=== PATIENT | male | born 1965 | race Caucasian/White ===

== ENCOUNTER 2017-11-13 15:27 | Emergency (ER) | payer SELFPAY ==
[~2017-11-13] VITALS: Ht 175.3 cm; Wt 76.2 kg
[2017-11-13] MEDS ORDERED: CITA10SO PO (16:07)
[2017-11-13] MEDS ORDERED: BUSP30TA2 PO (16:07)
[2017-11-13] MEDS ORDERED: DIVA125T32 PO (16:07)
[2017-11-13] MEDS ORDERED: TRAZ-190 PO (16:07)
--- NOTE | 2017-11-13 16:08 | ED Psychosocial ---
General Chief Complaint: Psych/Social Disorder Stated Complaint: PANIC ATTACKS/SUICIDAL Source: patient, other (patient was referred to the emergency department from [facility].) Exam Limitations: no limitations History of Present Illness Date Seen by Provider: Nov 13, 2017 Time Seen by Provider: 16:05 Initial Comments This 52-year-old white male presents with a suicidal ideation from [facility]. The Patient has not actively done anything to harm himself. He states he has lifelong depression. The patient was referred to the emergency department from [facility] where he was being seen on an outpatient basis in mental health. Upon further history taking patient relates that he no longer has a suicidal ideation. He was given new medications to start from [facility] which she will take. He wants to follow-up with mental health at [facility] on Thursday for further evaluation and care. Allergies and Home Medications Allergies Uncoded Allergies: IV DYE (Allergy, Unknown, 11/13/17) Patient Home Medication List Home Medication List Reviewed: Yes Constitutional: No chills, No fever EENTM: No vision loss Respiratory: No hemoptysis, No short of breath Gastrointestinal: No abdominal pain, No vomiting Genitourinary: no symptoms reported Musculoskeletal: no symptoms reported Skin: No rash Psychiatric/Neurological: Anxiety, Depressed, Other (suicidal ideations) Past Ajeoaue-Kkvqvr-Dhrwif Hx Patient Social History Recent Foreign Travel: No Contact w/Someone Who Travel: No Family Medical History Reviewed Nursing Family Hx Physical Exam Vital Signs Vital Signs - First Documented 11/13/17 15:50 Temp 97.1 Pulse 66 Resp 18 B/P (MAP) 126/89 (101) Pulse Ox 99 O2 Delivery Room Air Capillary Refill : General Appearance: WD/WN, mild distress HEENT: normal ENT inspection Neck: supple Respiratory: lungs clear, normal breath sounds Cardiovascular: regular rate, rhythm Gastrointestinal: normal bowel sounds, non tender Extremities: normal range of motion, non-tender Neurologic/Psychiatric: no motor/sensory deficits, alert, normal mood/affect, oriented x 3 Appearance/Memory: other (patient appears clearly depressed. He is having no flight of ideas. He is having no hallucinations.) Behavior/Eye Contact: cooperative, normal speech Thoughts/Hallucinations: no apparent hallucination; No auditory hallucinations ; flight of ideas; No tactile hallucinations, No visual hallucinations Skin: normal color Progress/Results/Core Measures Lab Results Laboratory Tests Test 4/13/18 15:54 Range/Units White Blood Count 10.2 4.3-11.0 10^3/uL Red Blood Count 5.93 H 4.35-5.85 10^6/uL Hemoglobin 17.6 13.3-17.7 G/DL Hematocrit 50 40-54 % Mean Corpuscular Volume 85 80-99 FL Mean Corpuscular Hemoglobin 30 25-34 PG Mean Corpuscular Hemoglobin Concent 35 32-36 G/DL Red Cell Distribution Width 14.1 10.0-14.5 % Platelet Count 316 130-400 10^3/uL Mean Platelet Volume 10.0 7.4-10.4 FL Neutrophils (%) (Auto) 66 42-75 % Lymphocytes (%) (Auto) 25 12-44 % Monocytes (%) (Auto) 8 0-12 % Eosinophils (%) (Auto) 1 0-10 % Basophils (%) (Auto) 0 0-10 % Neutrophils # (Auto) 6.7 1.8-7.8 X 10^3 Lymphocytes # (Auto) 2.6 1.0-4.0 X 10^3 Monocytes # (Auto) 0.8 0.0-1.0 X 10^3 Eosinophils # (Auto) 0.1 0.0-0.3 10^3/uL Basophils # (Auto) 0.0 0.0-0.1 10^3/uL Sodium Level 141 135-145 MMOL/L Potassium Level 4.5 3.6-5.0 MMOL/L Chloride Level 105 98-107 MMOL/L Carbon Dioxide Level 26 21-32 MMOL/L Anion Gap 10 5-14 MMOL/L Blood Urea Nitrogen 18 7-18 MG/DL Creatinine 1.03 0.60-1.30 MG/DL Estimat Glomerular Filtration Rate > 60 BUN/Creatinine Ratio 17 Glucose Level 91 70-105 MG/DL Calcium Level 10.2 H 8.5-10.1 MG/DL Total Bilirubin 0.6 0.1-1.0 MG/DL Aspartate Amino Transf (AST/SGOT) 15 5-34 U/L Alanine Aminotransferase (ALT/SGPT) 14 0-55 U/L Alkaline Phosphatase 82 40-136 U/L Total Protein 7.5 6.4-8.2 GM/DL Albumin 4.6 H 3.2-4.5 GM/DL Salicylates Level < 5.0 L 5.0-20.0 MG/DL Urine Opiates Screen NEGATIVE NEGATIVE Urine Oxycodone Screen NEGATIVE NEGATIVE Urine Methadone Screen NEGATIVE NEGATIVE Urine Propoxyphene Screen NEGATIVE NEGATIVE Acetaminophen Level < 10 L 10-30 UG/ML Urine Barbiturates Screen NEGATIVE NEGATIVE Ur Tricyclic Antidepressants Screen NEGATIVE NEGATIVE Urine Phencyclidine Screen NEGATIVE NEGATIVE Urine Amphetamines Screen POSITIVE H NEGATIVE Urine Methamphetamines Screen NEGATIVE NEGATIVE Urine Benzodiazepines Screen NEGATIVE NEGATIVE Urine Cocaine Screen NEGATIVE NEGATIVE Urine Cannabinoids Screen POSITIVE H NEGATIVE Serum Alcohol < 10 <10 MG/DL My Orders Orders - TRAVON LOVE MD Cbc With Automated Diff (11/13/17 16:21) Comprehensive Metabolic Panel (11/13/17 16:21) Alcohol (11/13/17 16:21) Salicylate (11/13/17 16:21) Acetaminophen (11/13/17 16:21) Drug Screen Stat (Urine) (11/13/17 16:46) Ekg Tracing (11/13/17 16:57) Vital Signs/I&O 11/13/17 15:50 Temp 97.1 Pulse 66 Resp 18 B/P (MAP) 126/89 (101) Pulse Ox 99 O2 Delivery Room Air Progress Note : Time: 17:16 Progress Note The patient demonstrates capacity. He states that he is no longer suicidal. He states that he will follow-up with [facility] for further psychiatric treatment on Thursday. He promises to return if any problems or questions Departure Impression Primary Impression: Depression Qualified Codes: F33.2 - Major depressive disorder, recurrent severe without psychotic features Disposition: 01 HOME, SELF-CARE Condition: Unchanged Departure-Patient Inst. Decision time for Depature: 17:18 Referrals: [facility] (PCP/Family) Primary Care Physician Patient Instructions: Depression, Adult (DC) Add. Discharge Instructions: Follow-up with [facility] for further evaluation treatment of her depression on Thursday. Take the medications that were given to you from [facility] over the weekend. Return if any problems or questions to the emergency department. All discharge instructions reviewed with patient and/or family. Voiced understanding. TRAVON LOVE MD Nov 13, 2017 16:08
[2017-11-13 16:28] LABS: BASOPHILS % (AUTO) 0 % (0-10); EOSINOPHILS # (AUTO) 0.1 10^3/uL (0.0-0.3); EOSINOPHILS % (AUTO) 1 % (0-10); HEMATOCRIT 50 % (40-54); HEMOGLOBIN 17.6 G/DL (13.3-17.7); LYMPHOCYTES # (AUTO) 2.6 X 10^3 (1.0-4.0); LYMPHOCYTES % (AUTO) 25 % (12-44); MEAN CORPUSCULAR HEMOGLOBIN 30 PG (25-34); MEAN CORPUSCULAR HGB CONC 35 G/DL (32-36); MEAN CORPUSCULAR VOLUME 85 FL (80-99); MONOCYTES # (AUTO) 0.8 X 10^3 (0.0-1.0); MONOCYTES % (AUTO) 8 % (0-12); NEUTROPHILS # (AUTO) 6.7 X 10^3 (1.8-7.8); NEUTROPHILS % (AUTO) 66 % (42-75); PLATELET COUNT 316 10^3/uL (130-400); RED BLOOD COUNT 5.93 10^6/uL (4.35-5.85); RED CELL DISTRIBUTION WIDTH 14.1 % (10.0-14.5); WHITE BLOOD COUNT 10.2 10^3/uL (4.3-11.0)
[2017-11-13 16:42] LABS: ACETAMINOPHEN < 10 UG/ML (10-30); ALANINE AMINOTRANSFERASE 14 U/L (0-55); ALBUMIN 4.6 GM/DL (3.2-4.5); ALKALINE PHOSPHATASE 82 U/L (40-136); BILIRUBIN,TOTAL 0.6 MG/DL (0.1-1.0); BUN/CREATININE RATIO 17; CALCIUM 10.2 MG/DL (8.5-10.1); CARBON DIOXIDE 26 MMOL/L (21-32); CHLORIDE 105 MMOL/L (98-107); CREATININE SERUM 1.03 MG/DL (0.60-1.30); GFR ESTIMATED > 60; GLUCOSE 91 MG/DL (70-105); POTASSIUM 4.5 MMOL/L (3.6-5.0); SALICYLATE < 5.0 MG/DL (5.0-20.0); SODIUM 141 MMOL/L (135-145); TOTAL PROTEIN 7.5 GM/DL (6.4-8.2)
[2017-11-13 17:04] LABS: AMPHETAMINE SCREEN, URINE POSITIVE (NEGATIVE); BARBITURATE SCREEN URINE NEGATIVE (NEGATIVE); BENZODIAZEPINES SCREEN URINE NEGATIVE (NEGATIVE); CANNABINOID SCREEN, URINE POSITIVE (NEGATIVE); COCAINE SCREEN URINE NEGATIVE (NEGATIVE); METHADONE STAT NEGATIVE (NEGATIVE); METHAMPHETAMINE SCREEN URINE S NEGATIVE (NEGATIVE); OPIATE SCREEN URINE NEGATIVE (NEGATIVE); OXYCODONE STAT NEGATIVE (NEGATIVE); PROPOXYPHENE STAT NEGATIVE (NEGATIVE); TRICYCLIC ANTIDEPRESSANTS SCRE NEGATIVE (NEGATIVE)
[2017-11-13 17:34] VITALS: BP 122/87
== END 2017-11-13 17:33 | disposition home or self-care (01) ==
LOC: EDUNIT# 15:27 → ER 15:28
DX: F32.9 Major depressive disorder, single episode, unspecified (principal); F41.9 Anxiety disorder, unspecified; Z91.041 Radiographic dye allergy status
CPT/HCPCS: 36415; 80053; 80306; 80320; 80329; 85025; 93005

== ENCOUNTER 2018-06-10 14:10 | Emergency (ER) | payer OTHER ==
[~2018-06-10] VITALS: Ht 175.3 cm; Wt 72.6 kg
[~2018-06-10 14:10] MED LIST: BUSP30TA2 PO; CITA10SO PO; DIVA125T32 PO; TRAZ-190 PO
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
[2018-06-10] MEDS ORDERED: NAPR-1071 PO (15:00)
[2018-06-10] MEDS ORDERED: METH-313 PO (15:00)
[2018-06-10 15:19] VITALS: BP 131/91
== END 2018-06-10 15:19 | disposition home or self-care (01) ==
LOC: EDUNIT# 14:10 → ER 14:12
DX: S16.1XXA Strain of muscle, fascia and tendon at neck level, initial encounter (principal); R20.2 Paresthesia of skin; F32.9 Major depressive disorder, single episode, unspecified; R40.2142 Coma scale, eyes open, spontaneous, at arrival to emergency department; R40.2252 Coma scale, best verbal response, oriented, at arrival to emergency department; R40.2362 Coma scale, best motor response, obeys commands, at arrival to emergency department; F12.10 Cannabis abuse, uncomplicated; F15.10 Other stimulant abuse, uncomplicated; Z91.041 Radiographic dye allergy status; Z77.22 Contact with and (suspected) exposure to environmental tobacco smoke (acute) (chronic); Z91.5 Personal history of self-harm; V49.40XA Driver injured in collision with unspecified motor vehicles in traffic accident, initial encounter
CPT/HCPCS: 72125

== ENCOUNTER 2019-02-07 04:53 | Emergency (ER) | payer SELFPAY ==
[~2019-02-07] VITALS: Ht 175.3 cm; Wt 68.0 kg
[~2019-02-07 04:53] MED LIST changes: +METH-313 PO; +NAPR-1071 PO
[2019-02-07] MEDS ORDERED: KETOROLAC 30 MG/ML VIAL IM ONE (06:45)
--- NOTE | 2019-02-07 06:52 | NUR ---
REPORT GIVEN TO LAVERNE RODRIGUEZ
--- NOTE | 2019-02-07 06:54 | Diagnostic Imaging Report ---
INDICATION: Injury with pain. FINDINGS: Three-view left ankle showed no fracture, dislocation or acute articular incongruity. The plafond and talar dome intact. No disruption of the mortise. Medial, lateral and posterior malleolar intact. IMPRESSION: No acute appearing abnormality. Dictated by: Dictated on workstation # [id number]
--- NOTE | 2019-02-07 06:55 | Diagnostic Imaging Report ---
Indication: Injury with pain. Three-view left foot shows no fracture, dislocation or acute articular incongruity. No retained foreign body. No focal swelling. Impression: Unremarkable three-view left foot. Dictated by: Dictated on workstation # [id number]
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
[2019-02-07 07:27] VITALS: BP 126/78
== END 2019-02-07 07:26 | disposition home or self-care (01) ==
LOC: EDUNIT# 04:53 → ER 04:56
DX: S90.32XA Contusion of left foot, initial encounter (principal); F32.9 Major depressive disorder, single episode, unspecified; Z77.22 Contact with and (suspected) exposure to environmental tobacco smoke (acute) (chronic); Z91.041 Radiographic dye allergy status; W22.8XXA Striking against or struck by other objects, initial encounter
CPT/HCPCS: 73610; 73630; 96372

== ENCOUNTER 2020-12-31 13:01 | Emergency (ER) | payer SELFPAY ==
[~2020-12-31] VITALS: Ht 175 cm; Wt 72.7 kg
[~2020-12-31 13:01] MED LIST changes: -TRAZ-190 PO; +TRAZ-227 PO
[2020-12-31 13:39] LABS: BASOPHILS # (AUTO) 0.1 10^3/uL (0.0-0.1); BASOPHILS % (AUTO) 1 % (0-10); EOSINOPHILS # (AUTO) 0.1 10^3/uL (0.0-0.3); EOSINOPHILS % (AUTO) 1 % (0-10); HEMATOCRIT 47 % (40-54); HEMOGLOBIN 16.4 g/dL (13.3-17.7); LYMPHOCYTES # (AUTO) 1.6 10^3/uL (1.0-4.0); LYMPHOCYTES % (AUTO) 18 % (12-44); MEAN CORPUSCULAR HEMOGLOBIN 30 pg (25-34); MEAN CORPUSCULAR HGB CONC 35 g/dL (32-36); MEAN CORPUSCULAR VOLUME 85 fL (80-99); MEAN PLATELET VOLUME 9.4 fL (9.0-12.2); MONOCYTES # (AUTO) 0.8 10^3/uL (0.0-1.0); MONOCYTES % (AUTO) 10 % (0-12); NEUTROPHILS % (AUTO) 71 % (42-75); PLATELET COUNT 303 10^3/uL (130-400); WHITE BLOOD COUNT 8.5 10^3/uL (4.3-11.0)
--- NOTE | 2020-12-31 13:40 | ED GU-Male ---
General Chief Complaint: Abdominal/GI Problems Stated Complaint: RLQ PAIN Nursing Triage Note: AMB TO ROOM C/O R SIDE PAIN ONSET YESTERDAY. YESTERDAY PAIN WAS IN HIS BACK. ONSET 3 DAYS AGO. ALSO ADMIT TO SMOKING METH YESTERDAY. Source: patient Exam Limitations: no limitations History of Present Illness Date Seen by Provider: December 31, 2020 Time Seen by Provider: 13:38 Initial Comments To ER with right flank pain for about 5 days getting worse over the past few days. Smoked methamphetamine yesterday. Intermittent nausea. He did have some dysuria but that feels better today. Timing/Duration: just prior to arrival Severity/Quality: moderate Location: right flank Radiation: none Activities at Onset: none Prior Genitourinary Problems: none Associated Symptoms: dysuria, nausea/vomiting Allergies and Home Medications Allergies Uncoded Allergies: IV DYE (Allergy, Unknown, 11/13/17) Home Medications Methocarbamol 750 Mg Tablet, 750 MG PO Q6H PRN for PAIN-MODERATE TO SEVERE Prescribed by: BEN FLORES on 06/10/18 1500 Naproxen 500 Mg Tablet, 500 MG PO BID PRN for PAIN-MODERATE TO SEVERE Prescribed by: BEN FLORES on 06/10/18 1500 Patient Home Medication List Home Medication List Reviewed: Yes Review of Systems Review of Systems Constitutional: see HPI EENTM: see HPI Respiratory: no symptoms reported Cardiovascular: no symptoms reported Genitourinary: see HPI, dysuria, flank pain Musculoskeletal: no symptoms reported Skin: no symptoms reported Psychiatric/Neurological: No Symptoms Reported Endocrine: No Symptoms Reported Hematologic/Lymphatic: No Symptoms Reported Past Pxvgbep-[id number]-Pokgrq Hx Patient Social History Alcohol Use: Denies Use Drug of Choice: CANNIBUS, METH Smoking Status: Current Everyday Smoker Type Used: Cigarettes 2nd Hand Smoke Exposure: Yes Recent Infectious Disease Expo: No Recent Hopitalizations: No Immunizations Up To Date Tetanus Booster (TDap): Unknown Seasonal Allergies Seasonal Allergies: No Past Medical History Surgeries: No Respiratory: No Cardiac: No Neurological: No Genitourinary: No Gastrointestinal: No Musculoskeletal: No Endocrine: No HEENT: No Cancer: No Psychosocial: Yes Suicide Attempts, Depression Integumentary: No Blood Disorders: No Physical Exam Vital Signs Vital Signs - First Documented 12/31/20 13:10 Temp 35.8 Pulse 107 Resp 18 B/P (MAP) 157/102 (120) Pulse Ox 99 O2 Delivery Room Air Capillary Refill : Less Than 3 Seconds Height, Weight, BMI Height: 5'9.00" Weight: 150lbs. oz. [id number]; 23.00 BMI Method:Stated General Appearance: WD/WN, no apparent distress HEENT: PERRL/EOMI, normal ENT inspection Neck: non-tender, full range of motion Respiratory: no respiratory distress, no accessory muscle use Gastrointestinal: normal bowel sounds, non tender, soft Neurologic/Psychiatric: alert, normal mood/affect, oriented x 3 Skin: normal color, warm/dry Progress/Results/Core Measures Suspected Sepsis Recent Fever Within 48 Hours: No Infection Criteria Present: None New/Unexplained Altered Menta: No Sepsis Screen: No Definite Risk SIRS Temperature: Pulse: 107 Respiratory Rate: 18 Laboratory Tests 12/31/20 13:32: White Blood Count 8.5 Blood Pressure 157 /102 Mean: 120 Laboratory Tests 12/31/20 13:32: Creatinine 0.93, Platelet Count 303, Total Bilirubin 0.4 Results/Orders Lab Results Laboratory Tests Test 12/31/20 13:32 12/31/20 14:08 Range/Units White Blood Count 8.5 4.3-11.0 10^3/uL Red Blood Count 5.51 4.30-5.52 10^6/uL Hemoglobin 16.4 13.3-17.7 g/dL Hematocrit 47 40-54 % Mean Corpuscular Volume 85 80-99 fL Mean Corpuscular Hemoglobin 30 25-34 pg Mean Corpuscular Hemoglobin Concent 35 32-36 g/dL Red Cell Distribution Width 13.0 10.0-14.5 % Platelet Count 303 130-400 10^3/uL Mean Platelet Volume 9.4 9.0-12.2 fL Immature Granulocyte % (Auto) 0 % Neutrophils (%) (Auto) 71 42-75 % Lymphocytes (%) (Auto) 18 12-44 % Monocytes (%) (Auto) 10 0-12 % Eosinophils (%) (Auto) 1 0-10 % Basophils (%) (Auto) 1 0-10 % Neutrophils # (Auto) 6.0 1.8-7.8 10^3/uL Lymphocytes # (Auto) 1.6 1.0-4.0 10^3/uL Monocytes # (Auto) 0.8 0.0-1.0 10^3/uL Eosinophils # (Auto) 0.1 0.0-0.3 10^3/uL Basophils # (Auto) 0.1 0.0-0.1 10^3/uL Immature Granulocyte # (Auto) 0.0 0.0-0.1 10^3/uL Sodium Level 139 135-145 MMOL/L Potassium Level 4.0 3.6-5.0 MMOL/L Chloride Level 102 98-107 MMOL/L Carbon Dioxide Level 25 21-32 MMOL/L Anion Gap 12 5-14 MMOL/L Blood Urea Nitrogen 12 7-18 MG/DL Creatinine 0.93 0.60-1.30 MG/DL Estimat Glomerular Filtration Rate > 60 BUN/Creatinine Ratio 13 Glucose Level 96 70-105 MG/DL Calcium Level 10.0 8.5-10.1 MG/DL Corrected Calcium 9.8 8.5-10.1 MG/DL Total Bilirubin 0.4 0.1-1.0 MG/DL Aspartate Amino Transf (AST/SGOT) 21 5-34 U/L Alanine Aminotransferase (ALT/SGPT) 22 0-55 U/L Alkaline Phosphatase 87 40-136 U/L Total Protein 7.1 6.4-8.2 GM/DL Albumin 4.3 3.2-4.5 GM/DL Urine Color YELLOW Urine Clarity CLEAR Urine pH 7.0 5-9 Urine Specific [place] 1.020 1.016-1.022 Urine Protein NEGATIVE NEGATIVE Urine Glucose (UA) NEGATIVE NEGATIVE Urine Ketones NEGATIVE NEGATIVE Urine Nitrite NEGATIVE NEGATIVE Urine Bilirubin NEGATIVE NEGATIVE Urine Urobilinogen 0.2 < = 1.0 MG/DL Urine Leukocyte Esterase NEGATIVE NEGATIVE Urine RBC (Auto) NEGATIVE NEGATIVE Urine RBC 0-2 /HPF Urine WBC NONE /HPF Urine Crystals NONE /LPF Urine Bacteria NEGATIVE /HPF Urine Casts NONE /LPF Urine Mucus NEGATIVE /LPF Urine Culture Indicated NO My Orders Orders - BEN FLORES APRN Cbc With Automated Diff (12/31/20 13:32) Comprehensive Metabolic Panel (12/31/20 13:32) Ua Culture If Indicated (12/31/20 13:32) Ed Iv/Invasive Line Start (12/31/20 13:32) Ct Abd/Pelvis Wo(Kidney Stone) (12/31/20 13:35) Ketorolac Injection (Toradol Injection) (12/31/20 13:45) Ns Iv 1000 Ml (Sodium Chloride 0.9%) (12/31/20 13:45) Medications Given in ED Current Medications Medications Dose Ordered Sig/Airam Route Start Time Stop Time Status Last Admin Dose Admin Ketorolac Tromethamine 15 mg ONCE ONCE IVP 12/31/20 13:45 12/31/20 13:46 DC 12/31/20 13:54 15 MG Vital Signs/I&O 12/31/20 13:10 Temp 35.8 Pulse 107 Resp 18 B/P (MAP) 157/102 (120) Pulse Ox 99 O2 Delivery Room Air Capillary Refill : Less Than 3 Seconds Blood Pressure Mean: 120 Departure Impression Primary Impression: Muscle strain Disposition: HOME, SELF-CARE Condition: Stable Departure-Patient Inst. Decision time for Depature: 14:34 [place]: [facility] [place] Primary Care Physician Patient Instructions: Muscle Strain ED Add. Discharge Instructions: 1. Return to ER for any concerns 2. Follow-up with your doctor next week 3. All discharge instructions reviewed with patient and/or family. Voiced unders tanding. BEN FLORES TIE FASTENER December 31, 2020 13:39
[2020-12-31] MEDS ORDERED: KETOROLAC 30 MG/ML VIAL IVP ONE (13:45)
[2020-12-31] MEDS ORDERED: NS IV 1000 ML 1,000 ML IV SCH (13:45)
[2020-12-31 13:47] LABS: ALBUMIN 4.3 GM/DL (3.2-4.5)
[2020-12-31 13:48] LABS: CHLORIDE 102 MMOL/L (98-107); SODIUM 139 MMOL/L (135-145)
[2020-12-31 13:50] LABS: GLUCOSE 96 MG/DL (70-105); TOTAL PROTEIN 7.1 GM/DL (6.4-8.2)
[2020-12-31 13:51] LABS: CARBON DIOXIDE 25 MMOL/L (21-32)
[2020-12-31 13:52] LABS: BILIRUBIN,TOTAL 0.4 MG/DL (0.1-1.0)
[2020-12-31 13:53] LABS: ALKALINE PHOSPHATASE 87 U/L (40-136)
[2020-12-31 13:54] LABS: CREATININE SERUM 0.93 MG/DL (0.60-1.30); GFR ESTIMATED > 60
[2020-12-31 13:55] LABS: BUN/CREATININE RATIO 13
[2020-12-31 13:56] LABS: ALANINE AMINOTRANSFERASE 22 U/L (0-55)
[2020-12-31 14:14] LABS: BILIRUBIN,URINE NEGATIVE (NEGATIVE); CLARITY,URINE CLEAR; COLOR,URINE YELLOW; GLUCOSE, URINE (UA) NEGATIVE (NEGATIVE); KETONES,URINE NEGATIVE (NEGATIVE); LEUKOCYTE ESTERASE ,URINE NEGATIVE (NEGATIVE); NITRITE,URINE NEGATIVE (NEGATIVE); PROTEIN,URINE NEGATIVE (NEGATIVE)
[2020-12-31 14:27] LABS: BACTERIA,URINE NEGATIVE /HPF; RBC,URINE 0-2 /HPF
--- NOTE | 2020-12-31 14:29 | Diagnostic Imaging Report ---
PROCEDURE: CT urinary tract, rule out kidney stone. TECHNIQUE: Multiple contiguous axial images were obtained through the abdomen and pelvis without the use of intravenous contrast. Auto Exposure Controls were utilized during the CT exam to meet ALARA standards for radiation dose reduction. INDICATION: Right-sided flank pain. No relevant comparison. There is no hydroureteronephrosis. No radiopaque urinary tract calculi. The urinary bladder unremarkable. No perinephric or periureteric edema. Liver, spleen, adrenals and pancreas unremarkable with scattered benign hepatosplenic calcified granuloma. The aorta is nonaneurysmal. There is no ileus or bowel obstruction. There is no appendicitis. There is noninflamed sigmoid diverticulosis. The prostate unremarkable. No mesenteric or retroperitoneal adenopathy. No ascites, abscess, hematoma or other acute fluid collection. The lung bases nonacute. Bony structures unremarkable. IMPRESSION: Unobstructed urinary tracts. No stone disease or inflammatory processes identified. No acute appearing abnormality apparent. Dictated by: Dictated on workstation # [id number]
[2020-12-31] MEDS ORDERED: METH-731 PO (14:37)
[2020-12-31 14:40] VITALS: BP 157/102
== END 2020-12-31 14:40 | disposition home or self-care (01) ==
LOC: EDUNIT# 13:01 → ER 13:03
DX: S39.011A Strain of muscle, fascia and tendon of abdomen, initial encounter (principal); F17.210 Nicotine dependence, cigarettes, uncomplicated; X58.XXXA Exposure to other specified factors, initial encounter
CPT/HCPCS: 36415; 74176; 80053; 81000; 85025